=== PATIENT | female | born 1980 | race Caucasian/White ===

== ENCOUNTER → 2023-10-30 16:41 | Outpatient (REF) | payer OTHER, SELFPAY | LOC: HWWDC 16:41 | PROVIDERS: ATTENDING PHYSICIAN Nurse Practitioner Adult Health | DX: Z12.31 Encounter for screening mammogram for malignant neoplasm of breast (principal) | CPT/HCPCS: 77063; 77067 ==

== ENCOUNTER 2024-07-30 13:51 | Emergency (ER) | payer OTHER, SELFPAY ==
[2024-07-30 14:01] VITALS: BP 151/96
--- NOTE | 2024-07-30 14:09 | ED.GENMED ---
ED Provider Triage
<Inessa Bright PA-C - Last Filed: 07/30/24 14:11>
-
Patient seen by provider in Triage?: Seen in Triage
Attestation: A medical screening examination has been initiated by a qualified medical provider. Based on the assessment performed at this time, it has been determined that an emergent medical condition may exist and the patient has been informed
that further medical evaluation and possible additional diagnostic testing may be needed.
HPI: 43yoF here with URI symptoms that started after Billie. Son tested positive for flu A initially. C/o worsening symptoms over the past few days. C/o chest pressure and SOB. Went to urgent care and told she had pneumonia but was sent to the ED
to r/o PE.
GENERAL: Alert , in no apparent distress
EYE: No visual abnormalities.
NECK: Trachea midline
ENT: No visible abnormalities.
LUNGS: No acute respiratory distress
NEUROLOGICAL: Alert and oriented
SKIN: Skin intact. No visible changes.
MUSCULOSKELETAL: Moving extremities normally
PSYCH: Normal and appropriate interaction.
This is a medical evaluation conducted in person to initiate diagnostic evaluation and provide initial therapeutics. Please see further documentation by the treating clinician.
She had viral testing earlier today which was reportedly negative. Cardiac labs, D-dimer, and EKG ordered.
History of Present Illness
<Inessa Bright PA-C - Last Filed: 07/30/24 14:11>
General
Chief Complaint: Breathing Problem
Time Seen by Provider: 07/30/24 15:22
<Ludivina Reed PA-C - Last Filed: 07/30/24 16:23>
General
Source: patient
Exam Limitations: none
Nursing documentation reviewed up to this point in time: agreed with
History of Present Illness
History of Present Illness:
43 y/o F
h/o MS on infusion q6 mo
on OCP
here from for PE r/o
she has had uri sxs since 07/18
family all had flu A
sh enever got tested
continues with cough and hten developed sob 3 days ago
today went to [facility], tested neg for flu and was sent to to get CXR
cxr showed pna but also her plt count was elevated and that made them send her for PE w/o. pt has chest tightness mild
no pleuritic pain
no legs welling
no sycope
no h/o dvt/pe
Past History
<Inessa Bright PA-C - Last Filed: 07/30/24 14:11>
Past History
ED Past Medical History: None
ED Past Surgical History: None
Social History
Tobacco: Non-smoker
<Ludivina Reed PA-C - Last Filed: 07/30/24 16:23>
Past History
ED Past Medical History: Other (ms)
Social History
Alcohol: None
Personal:
Living: with family
Review of Systems
<Ludivina Reed PA-C - Last Filed: 07/30/24 16:23>
Review of Systems
Allergies reviewed?: Yes
All Other Systems: Not applicable
Phy Exam
<Ludivina Reed PA-C - Last Filed: 07/30/24 16:23>
Physical Exam
Physical Exam:
GENERAL: Alert , in no apparent distress
EYE: pupils equal and reactive
NECK: Supple
ENT: b/l TM s clear, pharynx erythematous but no tonsillar hypertrophy or exudates
CARDIAC: MILD TACHYCARDIA, no edema
LUNGS: Clear breath sounds bilaterally, no acute respiratory distress, no wheezes/rales/rhonchi, occ cough
ABDOMEN: Soft, without focal tenderness, no r/g, no cvat, normal bowel sounds
NEUROLOGICAL: Alert and oriented, no focal neuro deficits
SKIN: Warm and dry, skin intact.
MUSCULOSKELETAL: No edema, well perfused.
PSYCH: Normal and appropriate interaction.
Scores
<Ludivina Reed PA-C - Last Filed: 07/30/24 16:23>
Heart Failure Risk
Heart Failure Risk Score: Not Applicable
Sepsis
<Inessa Bright PA-C - Last Filed: 07/30/24 14:11>
Sepsis Screen
Sepsis Screen: Possible Sepsis
Date: 07/30/24
Time: 14:09
<Ludivina Reed PA-C - Last Filed: 07/30/24 16:23>
Sepsis Screening
Sepsis Assessment: Sepsis Ruled Out
Sepsis Screen
Sepsis Screen: Sepsis Ruled Out
Date: 07/30/24
Time: 16:23
Course
<Inessa Bright PA-C - Last Filed: 07/30/24 14:11>
Orders/Labs/Results
Orders:
Orders
07/30/24 13:53
Electrocardiogram (*1) Urgent
Reason for Study: Shortness of Breath
EKG- Treatment ONCE
07/30/24 14:06
Test Result ONCE
07/30/24 14:11
Complete Blood Count/With Diff Urgent
Comprehensive Metabolic Panel Urgent
D-Dimer Urgent
HCG, Serum Qualitative Screen Urgent
Troponin I Urgent
07/30/24 14:45
CT Chest PE Study Urgent
Comment:
Reason For Exam: CP, SOB, elevated D-dimer
07/30/24 16:15
Amoxicillin 875 mg/Clav 125 mg [Augmentin 875 mg/125 mg] 1 tablet PO NOW STA
Azithromycin [Zithromax] 500 mg PO NOW STA
Abnormal Lab Results
07/30/24
14:11
WBC 13.9 H 10^3/uL
(4.8-10.8)
Hgb 11.7 L g/dL
(12.0-16.0)
Hct 34.8 L %
(37.0-47.0)
Plt Count 557 H 10^3/uL
(130-400)
Abs Immat Gran (auto) 0.1 H 10^3/uL
(0-0.05)
Absolute Neuts (auto) 10.6 H 10^3/uL
(1.4-6.5)
Absolute Monos (auto) 0.9 H 10^3/uL
(0.1-0.6)
Immature Gran % 0.6 H %
(0-0.5)
Neutrophils % 76.4 H %
(42.2-75.2)
Lymphocytes % 15.3 L %
(20.5-51.1)
D-Dimer 0.69 H ug/mlFEU
(0.00-0.50)
Carbon Dioxide 21 L mmol/L
(22-30)
Glucose 111 H mg/dl
(70-99)
07/30/24 14:11
07/30/24 14:11
Vital Signs
Initial and Last Documented VS:
Initial Vital Signs
Temp Pulse Resp BP Pulse Ox
36.4 C 104 22 151/96 99
07/30/24 14:01 07/30/24 14:01 07/30/24 14:01 07/30/24 14:01 07/30/24 14:01
Last Documented Vital Signs
Temp Pulse Resp BP Pulse Ox
36.4 C 109 22 151/96 98
07/30/24 14:01 07/30/24 15:33 07/30/24 14:01 07/30/24 14:01 07/30/24 15:33
<Ludivina Reed PA-C - Last Filed: 07/30/24 16:23>
Orders/Labs/Results
Orders:
Orders
07/30/24 13:53
Electrocardiogram (*1) Urgent
Reason for Study: Shortness of Breath
EKG- Treatment ONCE
07/30/24 14:06
Test Result ONCE
07/30/24 14:11
Complete Blood Count/With Diff Urgent
Comprehensive Metabolic Panel Urgent
D-Dimer Urgent
HCG, Serum Qualitative Screen Urgent
Troponin I Urgent
07/30/24 14:45
CT Chest PE Study Urgent
Comment:
Reason For Exam: CP, SOB, elevated D-dimer
07/30/24 16:15
Amoxicillin 875 mg/Clav 125 mg [Augmentin 875 mg/125 mg] 1 tablet PO NOW STA
Azithromycin [Zithromax] 500 mg PO NOW STA
Abnormal Lab Results
07/30/24
14:11
WBC 13.9 H 10^3/uL
(4.8-10.8)
Hgb 11.7 L g/dL
(12.0-16.0)
Hct 34.8 L %
(37.0-47.0)
Plt Count 557 H 10^3/uL
(130-400)
Abs Immat Gran (auto) 0.1 H 10^3/uL
(0-0.05)
Absolute Neuts (auto) 10.6 H 10^3/uL
(1.4-6.5)
Absolute Monos (auto) 0.9 H 10^3/uL
(0.1-0.6)
Immature Gran % 0.6 H %
(0-0.5)
Neutrophils % 76.4 H %
(42.2-75.2)
Lymphocytes % 15.3 L %
(20.5-51.1)
D-Dimer 0.69 H ug/mlFEU
(0.00-0.50)
Carbon Dioxide 21 L mmol/L
(22-30)
Glucose 111 H mg/dl
(70-99)
07/30/24 14:11
07/30/24 14:11
Vital Signs
Initial and Last Documented VS:
Initial Vital Signs
Temp Pulse Resp BP Pulse Ox
36.4 C 104 22 151/96 99
07/30/24 14:01 07/30/24 14:01 07/30/24 14:01 07/30/24 14:01 07/30/24 14:01
Last Documented Vital Signs
Temp Pulse Resp BP Pulse Ox
36.4 C 109 22 151/96 98
07/30/24 14:01 07/30/24 15:33 07/30/24 14:01 07/30/24 14:01 07/30/24 15:33
<Ludivina Reed PA-C - Last Filed: 07/30/24 16:23>
MDM/Problems Addressed
Differential Diagnosis Includes:
PNEUMONIA, PE
MDM/Problems Addressed:
43 y/o F
MS on immunosuppression q6 mo
here with pneumonia on cxr
sent for r/o PE becuase her plt countw as elevated at
pt is well appearing
no hypoxia
crackles L base
no resp distress
wbc mild elevation with L shift
plt 550s
d dimer elevated
trop neg
nonschemic ekg
ct chest shows moderate LLL pna
no pe
d/c with augmentin and azithromycin
low threshold for returning beuca gayle casper MS history
no MS symptoms now
<Ludivina Reed PA-C - Last Filed: 07/30/24 16:23>
*Critical Care Note
Total Time (30-74mins, 75-104mins- exclusive of procedures): Not Applicable
ED Attending Note
<Inessa Bright PA-C - Last Filed: 07/30/24 14:11>
-
Portions of this chart may have been created with voice recognition software.� Occasional wrong word or��sound alike� substitutions may have occurred due to the inherent limitations of voice recognition software.
Discharge Plan
Departure
Patient Disposition: Home (Routine Discharge)
Date of Disposition: 07/30/24
Time of Disposition: 16:16
Patient with high blood pressure during this ER visit?: No
Condition: Fair
Covid-19: Not Applicable
Discharge Problem:
Left lower lobe pneumonia
Instructions: Pneumonia in adults - Discharge instructions
Prescriptions:
New
amoxicillin-pot clavulanate 875-125 mg tablet
1 tab PO BID Qty: 14 0RF
azithromycin [Zithromax] 250 mg tablet
250 mg PO DAILY Qty: 4 0RF
Referrals:
Kylie Cox CRNP [Family Provider] - Follow up in 5-7 days
Activity Restrictions/Additional Instructions:
YOUR CAT SCAN CONFIRMS YOUR MODERATE SIZED PNEUMONIA IN YOUR LEFT LOWER LOBE
YOU NEED TO HAVE A REPEAT CHEST XRAY IN 3-4 WEEKS TO ENSURE IT HAS RESOLVED
TAKE AUGMENTIN TWICE A DAY FOR 7 DAYS AND AZITHROMYCIN ONCE A DAY FOR 4 DAYS STARTING TOMORROW
STQAY HYDRATED
RETURN FOR: WORSENING SYMPTOMS OF SHORTNESS OF BREATH, NEW FEVER, WORSE PAIN IN YOUR CHEST, WORSE FATIGUE ETC
OTHERWISWE SEE YOUR DOCTOR IN 1-2 WEEKS.
Interventions
Interventions:
*Risk Screen - Suicide Last Done: 07/30/24 14:01
*Neglect/Abuse Screening Last Done: 07/30/24 14:01
ED- Cardiac Assessment Last Done: 07/30/24 15:31
ED- Pulmonary Assessment Last Done: 07/30/24 15:31
Discharge Date and Time
Print Language: MAORI
[2024-07-30 14:37] LABS: % Basophils 0.6 % (0-2); % Eosinophils 0.4 % (0-6); % Immature Granulocytes 0.6 % (0-0.5); % Lymphocytes 15.3 % (20.5-51.1); % Monocytes 6.7 % (1.7-9.3); % Neutrophils 76.4 % (42.2-75.2); Absolute Basophils 0.1 10^3/uL (0-0.2); Absolute Eosinophils 0.1 10^3/uL (0-0.7); Absolute Immature Granulocytes 0.1 10^3/uL (0-0.05); Absolute Lymphocytes 2.1 10^3/uL (1.2-3.4); Absolute Monocytes 0.9 10^3/uL (0.1-0.6); Absolute Neutrophils 10.6 10^3/uL (1.4-6.5); Hematocrit 34.8 % (37.0-47.0); Hemoglobin 11.7 g/dL (12.0-16.0); Mean Corp Hgb Conc. 33.6 g/dL (33.0-37.0); Mean Corpuscular Hgb 27.3 pg (27.0-31.0); Mean Corpuscular Volume 81.1 fL (81.0-99.0); Mean Platelet Volume 8.6 fL (7.4-10.4); Nucleated Red Blood Cells % 0 %; Platelet Count 557 10^3/uL (130-400); Red Blood Cell Count 4.29 10^6/uL (4.20-5.40); Red Cell Dist. Width 14.2 % (11.5-14.5); White Blood Cell Count 13.9 10^3/uL (4.8-10.8)
[2024-07-30 14:42] LABS: D-Dimer 0.69 ug/mlFEU (0.00-0.50)
[2024-07-30 14:48] LABS: ALT (SGPT) 28 U/L (0-35); AST (SGOT) 29 U/L (14-36); Albumin 4.4 g/dl (3.5-5.0); Alkaline Phosphatase 107 U/L (38-126); Blood Urea Nitrogen 7 mg/dl (7-17); Calcium 9.6 mg/dl (8.4-10.2); Carbon Dioxide 21 mmol/L (22-30); Chloride 101 mmol/L (98-107); Glucose 111 mg/dl (70-99); Potassium 4.1 mmol/L (3.5-5.1); Sodium 137 mmol/L (135-145); Total Protein 7.4 g/dl (6.3-8.2); eGFR > 60.00
[2024-07-30 14:59] LABS: Troponin I < 0.012 ng/ml
[2024-07-30 15:00] LABS: HCG, Serum Qualitative Screen Negative
[2024-07-30 16:30] VITALS: BP 127/84
[2024-07-30] MEDS: MOTRIN 600 MG PO (16:37)
[2024-07-30] MEDS: ZITHROMAX 500 MG PO (16:37)
[2024-07-30] MEDS: AUGMENTIN 875 MG/125 MG 1 TABLET PO (16:37)
== END 2024-07-30 16:40 | disposition home or self-care (01) ==
LOC: EMR 13:51
PROVIDERS: Physician Assistant; EMERGENCY PHYSICIAN Emergency Medicine; FAMILY PHYSICIAN Nurse Practitioner Adult Health
DX: J18.9 Pneumonia, unspecified organism (principal); R00.0 Tachycardia, unspecified; R79.89 Other specified abnormal findings of blood chemistry
CPT/HCPCS: 99284; 71275; 80053; 84484; 84703; 85025; 85379; 93005; Q9967

== ENCOUNTER → 2024-09-06 08:10 | Outpatient (REF) | payer OTHER, SELFPAY | LOC: HWRAD 08:10 | PROVIDERS: ATTENDING PHYSICIAN Nurse Practitioner Adult Health | DX: J18.9 Pneumonia, unspecified organism (principal) | CPT/HCPCS: 71046 ==

== ENCOUNTER → 2024-10-30 16:26 | Outpatient (REF) | payer OTHER, SELFPAY | LOC: HWWDC 16:26 | PROVIDERS: ATTENDING PHYSICIAN Obstetrics & Gynecology; FAMILY PHYSICIAN Nurse Practitioner Adult Health | DX: Z12.31 Encounter for screening mammogram for malignant neoplasm of breast (principal) | CPT/HCPCS: 77063; 77067 ==

== ENCOUNTER → 2025-04-04 06:33 | Outpatient (REF) | payer OTHER, SELFPAY | LOC: HWRAD 06:33 | PROVIDERS: ATTENDING PHYSICIAN Nurse Practitioner Adult Health | DX: J18.9 Pneumonia, unspecified organism (principal) | CPT/HCPCS: 71046 ==